=== PATIENT | male | born 1985 | race Caucasian/White ===

== ENCOUNTER 2017-08-15 17:27 | Emergency (ER) | payer OTHER ==
[2017-08-15] MEDS ORDERED: methylPREDNISolone SOD SUCCI 125 MG/2 ML VIAL IV STA (20:37)
[2017-08-15] MEDS ORDERED: ALBUTEROL NEBULIZED 2.5 MG/3 ML INHALATION STA (20:38)
[2017-08-15 20:41] LABS: HCT 39.9 % (39.0-53.0); HGB 13.1 gm/dL (13.0-17.5); MCH 25.8 pg (25.0-35.0); MCHC 32.8 g/dL (31.0-37.0); MCV 78.5 fL (80.0-100.0); Mean Platelet Volume 7.2; Platelet Count 410 k/uL (150-450); Poikilocytosis Slight; RBC 5.08 m/uL (4.30-5.90); RDW 13.5 % (11.5-15.5); WBC 13.7 k/uL (3.8-10.6)
--- NOTE | 2017-08-15 20:52 | ED ---
General Adult HPI - General Chief complaint: Recheck/Abnormal Lab/Rx Stated complaint: Mass next to heart, Transfer from , Dr Wells Time Seen by Provider: 08/15/17 19:18 Source: patient Mode of arrival: ambulatory Limitations: no limitations - History of Present Illness Initial comments: 31-year-old male patient presents to the emergency department today as a transfer from [facility] for further evaluation of a mediastinal mass found on computed tomography scan today. Patient reports an 8 month history of feeling generally unwell. States that he had upper respiratory symptoms including cough, congestion, and chest tightness starting in May. He states that he has had no appetite and has lost approximately 50 pounds since then. He states that he did seek treatment from the clinic where he lives and was diagnosed with asthma, they did start him on inhalers however he states that these did not help his symptoms. Patient states that he felt like he was getting worse. States that he is very fatigued and having worsening trouble breathing. He reports bilateral posterior shoulder pain. States he did present to the clinic again today, states he did a x-ray and sent him for CT after her x-ray findings were revealed. He denies any fevers, chills, night sweats, nausea, or vomiting. Denies any testicular pain or swelling. Denies any constipation or diarrhea. Patient denies any recent rash, abdominal pain, numbness, tingling, dizziness, weakness, hematuria, dysuria, urinary urgency, urinary frequency, headache, visual changes, or any other complaints. - Related Data Home Medications Medication Instructions Recorded Confirmed Albuterol Inhaler [Ventolin Hfa 2 puff INHALATION RT-Q6H PRN 08/15/17 08/15/17 Inhaler] Fexofenadine HCl [Romelia Allergy] 180 mg PO DAILY PRN 08/15/17 08/15/17 Fluticasone Nasal [place] [Flonase 2 spr EA NOSTRIL DAILY PRN 08/15/17 08/15/17 Nasal [place]] Allergies Allergy/AdvReac Type Severity Reaction Status Date / Time No Known Allergies Allergy Verified 08/15/17 19:23 Review of Systems ROS Statement: Those systems with pertinent positive or pertinent negative responses have been documented in the HPI. ROS Other: All systems not noted in ROS Statement are negative. Past Medical History Past Medical History: No Reported History History of Any Multi-Drug Resistant Organisms: None Reported Past Surgical History: No Surgical Hx Reported Past Psychological History: No Psychological Hx Reported Smoking Status: Current every day smoker Past Alcohol Use History: None Reported Past Drug Use History: Marijuana General Exam Limitations: no limitations General appearance: alert, in no apparent distress, other (This is a well- developed adult male patient no acute distress. Vital signs upon presentation are temperature 99.2F, pulse 124, respirations 18) Eye exam: Present: normal appearance, PERRL, EOMI. Absent: scleral icterus, conjunctival injection, periorbital swelling ENT exam: Present: normal exam, normal oropharynx, mucous membranes moist, TM's normal bilaterally Neck exam: Present: normal inspection, full ROM. Absent: tenderness, meningismus, lymphadenopathy Respiratory exam: Present: wheezes (Course expiratory wheezing throughout all lung alcantara posteriorly), stridor (Resting stridor noted), other (Respirations are even and unlabored). Absent: normal lung sounds bilaterally, respiratory distress, rales, rhonchi Cardiovascular Exam: Present: normal rhythm, tachycardia, normal heart sounds. Absent: systolic murmur, diastolic murmur, rubs, gallop, clicks GI/Abdominal exam: Present: soft, normal bowel sounds. Absent: distended, tenderness, guarding, rebound, rigid exam: Present: other (Testicular exam performed by my attending Dr. Wells, exam reported as normal.) Neurological exam: Present: alert, oriented X3, CN II-XII intact Psychiatric exam: Present: normal affect, normal mood Skin exam: Present: warm, dry, intact, normal color. Absent: rash Course Vital Signs 08/15/17 08/15/17 08/15/17 18:05 19:34 20:17 Temperature 99.2 F Pulse Rate 124 H 106 H Respiratory 18 20 22 Rate Blood Pressure 131/76 141/69 O2 Sat by Pulse 99 98 Oximetry 08/15/17 08/15/17 08/15/17 20:56 20:57 21:06 Temperature Pulse Rate 112 H 110 H 114 H Respiratory 20 Rate Blood Pressure 123/70 O2 Sat by Pulse 97 Oximetry Medical Decision Making - Medical Decision Making 31-year-old male patient presented to the emergency department today as a transfer from [facility] for further evaluation of a mediastinal mass. Physical examination does reveal coarse expiratory wheezing throughout posterior lung alcantara and resting stridor. His respirations are even and unlabored. Oxygen saturation is 99-100% on room air. CT results were reviewed and did show an extensive mediastinal mass with both trachea deviation and vascular narrowing, further results below in radiology section. We did perform testicular examination for the possibility of teratoma with primary testicular site, which was normal at this time. It is felt at this time the patient would benefit from a transfer to a higher level of care. Patient will be transferred to [facility] with Dr. Mckeon accepting. Prior to transfer we will administer Solu-medrol and albuterol breathing treatment. - Lab Data Result diagrams: 08/15/17 20:24 Lab Results 08/15/17 08/15/17 Range/Units 20:24 20:24 WBC 13.7 H (3.8-10.6) k/uL RBC 5.08 (4.30-5.90) m/uL Hgb 13.1 (13.0-17.5) gm/dL Hct 39.9 (39.0-53.0) % MCV 78.5 L (80.0-100.0) fL MCH 25.8 (25.0-35.0) pg MCHC 32.8 (31.0-37.0) g/dL RDW 13.5 (11.5-15.5) % Plt Count 410 (150-450) k/uL Poikilocytosis Slight PT 11.2 (9.0-12.0) sec INR 1.2 H (<1.2) APTT 28.4 (22.0-30.0) sec - Radiology Data Radiology results: report reviewed, image reviewed CT of the thorax with contrast was performed, he denies identified encompassing the entire superior mediastinum and starts above the level of the sternoclavicular joints. Is uncertain as to how cephalad this extends. This extends caudally down along the posterior mediastinum displacing the esophagus to the level just below the main pulmonary vein at the appropriate level of the left atrium. This mass measures anesthetizes 17 x 14 by at least 16 cm if not further up into the neck. There are very degrees enhancement where anteriorly at the level of the aortic arch there are 2 areas of lower density which are rounded and could very well are present that of infectious process such as an abscess or necrosis. This mass otherwise is fairly homogenous. This significantly narrows the trachea to a width of approximately 2.3 mm at its narrowest just above the ghada. This takes on a crescentic appearance at this level. This narrowing initiates at the level of the mid manubrium. Otherwise the trachea significantly deviated to the right. There is narrowing of all of the vasculature arising off of the aortic arch all the way up into the neck as well as significant narrowing of the left main pulmonary artery. Do not see evidence of pericardial effusion. There is no evidence of hepatic mass. There is a 6 mm pulmonary nodule in the right lower lobe adjacent to the secondary and third branch block. There is a nonspecific soft tissue nodule. On the left there is atelectasis of the left upper lobe due to this mass. There are 3 tiny nodules in the left lower lobe of a 2 and 3 mm size. No effusions are seen. I do not see evidence of any lytic or blastic changes of the osseous structures. Impression shows huge mass encompassing the entire and portions of the mid mediastinum that extends above the level of this exam into the neck. This is causing severe narrowing of the distal trachea especially. This patient requires immediate pulmonary consultation. There is marked displacement of the trachea and there is significant narrowing of the left main pulmonary artery. Additional findings are discussed above in detail. Disposition Clinical Impression: Mediastinal mass Disposition: OTHER INSTITUTION NOT DEFINED Condition: Serious Referrals: Nonstaff,Physician [Primary Care Provider] - 1-2 days - Out of Hospital Transfer - Req. Specs Out of Hospital Transfer - Requested Specifics: Medical ICU ([facility] - [place], [place])
[2017-08-15 20:57] VITALS: RESP 20
[2017-08-15 21:15] LABS: INR 1.2 (<1.2); Partial Thromboplastin Time 28.4 sec (22.0-30.0); Prothrombin Time 11.2 sec (9.0-12.0)
[2017-08-15 21:39] VITALS: BP 112/71; PULSE 121; TEMP 99
[2017-08-15 21:52] LABS: ALT 51 U/L (21-72); AST 35 U/L (17-59); Albumin 4.4 g/dL (3.5-5.0); Alkaline Phosphatase 101 U/L (38-126); Anion Gap 13 mmol/L; Blood Urea Nitrogen 9 mg/dL (9-20); Calcium 10.3 mg/dL (8.4-10.2); Carbon Dioxide 30 mmol/L (22-30); Chloride 99 mmol/L (98-107); Glucose 109 mg/dL (74-99); Potassium 4.2 mmol/L (3.5-5.1); Sodium 142 mmol/L (137-145); Total Protein 7.5 g/dL (6.3-8.2)
== END 2017-08-15 21:45 | disposition other institution (70) ==
LOC: EC 17:27
DX: R22.2 Localized swelling, mass and lump, trunk (principal); R53.83 Other fatigue; M25.512 Pain in left shoulder; M25.511 Pain in right shoulder; J39.8 Other specified diseases of upper respiratory tract; F17.200 Nicotine dependence, unspecified, uncomplicated
CPT/HCPCS: 36415; 94640; 80053; 85027; 85610; 85730; 99284; 96374; J2930